=== PATIENT | female | born 1995 | race Caucasian/White ===

== ENCOUNTER 2017-12-10 13:21 | Emergency (ER) | payer BC, MEDICAID ==
[~2017-12-10] VITALS: Ht 175.3 cm; Wt 59.0 kg
--- NOTE | 2017-12-10 13:30 | NUR ---
PATIENT WAS MSE BY DR ANTHONY IN ROOM 02A.
[2017-12-10] MEDS ORDERED: TDAP DIPH,PERTUSS,TET VAC/PF 0.5 ML DISP.SYRIN IM ONE (13:45)
[2017-12-10 14:05] VITALS: BP 112/69
--- NOTE | 2017-12-10 14:05 | NUR ---
Patient discharged to home in stable conditon. Written and verbal after care instructions given. Patient verbalizes understanding of instructions.
== END 2017-12-10 14:05 | disposition home or self-care (01) ==
LOC: ER 13:21
DX: S61.250A Open bite of right index finger without damage to nail, initial encounter (principal); W53.11XA Bitten by rat, initial encounter; Y93.89 Activity, other specified; Y92.89 Other specified places as the place of occurrence of the external cause; Y99.8 Other external cause status
CPT/HCPCS: 90471; 90715; 99283; A4663